=== PATIENT | male | born 1980 | race Caucasian/White ===

== ENCOUNTER 2016-12-26 15:53 | Day surgery (SDC) | payer OTHER ==
[~2016-12-26] VITALS: Ht 190.5 cm; Wt 126.6 kg
[~2016-12-26 15:53] MED LIST: AMLO5TAB2 PO; CETI10CA19 PO; LORA0.5T86 PO
--- OUTSIDE RECORDS SUMMARY | 2016-12-26 16:01 | XMS REPORT | Continuity of Care Document ---
Author Author [facility] Organization [facility] Address Unknown Phone Unavailable Allergies Active Description Code Type Severity Reaction Onset Reported/Identified Relationship to Patient Clinical Status Yes No Known Drug Allergy [id number] Drug Allergy N/A N/A Confirmed but inactive Yes peach 7909 Drug Allergy N/A N/A Confirmed or Verified Yes No Known Medication Allergies NKMA N/A N/A 04/11/2015 Yes peach 7909 Drug Allergy Moderate Swelling 11/28/2016 Medications Problems Date Dx Coded Attending Type Code Diagnosis Diagnosed By 05/15/2013 LANDON MENDEZ 793.19 NONSP FINDING-LF NEC Procedures Code [place] [address] COMPLETE CBC, AUTOMATED LANDON MENDEZ 05/15/2013 Results Test Result Range CBC - 05/15/13 10:25 Granulocyte # 3.2 x10^3 3.0-7.0 Granulocyte % 49.0 % 50-70 HCT 45.4 % 42.0-52.0 HGB 15.2 G/DL 14.0-18.0 Lymph # 3.0 x10^3 1.0-4.0 Lymph % 46.0 % 20-50 MCH 28.9 PG 27.0-31.0 MCHC 33.5 G/DL 32.0-36.0 MCV 86 FL 80-94 [place] # 0.3 x10^3 0.0-0.8 [place] % 5.0 % 1.0-9.0 MPV 6.0 FL 6.0-10.0 Platelet 286 x10^3 150-400 RBC 5.26 x10^3 4.60-6.20 RDW 12.7 % 10.0-13.0 WBC 6.5 x10^3 5.8-10.8 Encounters ACCT No. Visit Date/Time Discharge Status Pt. Type Provider Facility Loc./Unit Complaint [id number] 05/15/2013 13:00:00 05/15/2013 13:00:00 DIS Outpatient [facility]ANDON [facility] [id number] 11/28/2016 12:05:00 Document Registration
--- OUTSIDE RECORDS SUMMARY | 2016-12-26 16:01 | XMS REPORT | Continuity of Care Document ---
Author Author [facility] Organization [facility] Address Unknown Phone Unavailable Support Name Relationship Address Phone CHARIS BOOKER MD Caregiver [address] [place] [address] Unavailable ERASMO VALERA MD Caregiver [address] [facility] [address] [place] [address] Unavailable CARLOS MICHLis Next Of Kin [address] [place], [place] [id number] CP Insurance Providers Guarantor Dilshad Tamayo Address [address] [place] [address] CP Email [email or web address] Payer [facility] Select Policy Number [id number] Subscriber's Name Dilshad Tamayo Relationship 18 Self Advance Directives Directive Response Recorded Date/Time Ordered Resuscitation Status Full Code 12/21/16 3:15pm Resuscitation Documents on File No 12/24/16 6:14am DPOA for Healthcare Only No 12/24/16 6:14am Living Will No 12/24/16 6:14am Problems Active Problems Medical Problem Onset Date Status Precordial chest pain Unknown Acute Medications Current Home Medications Medication Dose Units Route Directions Days Qty Instructions Start Date Amlodipine Besylate 5 Mg Tablet 5 Mg Oral Daily 30 Tablet 12/01/16 Cetirizine Hcl (Zyrtec) 10 Mg Capsule 1 Cap Oral Daily 12/21/16 Lorazepam (Ativan) 0.5 Mg Tablet 0.5 Mg Oral Three Times A Day 10 Days 30 Tablet 12/05/16 Past Home Medications Medication Directions Ordered Status Acetaminophen (Tylenol Extra Strength) 500 Mg Tablet, 1-2 Tab Oral Every 6 Hours as needed for Pain 07/14/15 Discontinued Escitalopram Oxalate 20 Mg Tablet, 1 Tab Oral Bedtime 07/14/15 Discontinued Ibuprofen 200 Mg Tablet, 2 Tab Oral Every 4 Hours as needed for Pain Discontinued Nitroglycerin (Nitrostat) 0.4 Mg Tablet, 0.4 Mg Sublingual As Needed Discontinued Omeprazole 20 Mg Tablet.dr, 20 Mg Oral Before Breakfast 12/24/16 Discontinued Omeprazole Magnesium (Prilosec Otc) 20 Mg Tablet., 1 Tab Oral Bedtime for Acid Reflux 12/01/16 Discontinued Oxycodone Hcl/Acetaminophen (Percocet 5-325 Mg Tablet) 1 Each Tablet, 5 Mg Oral Every 3 Hours as needed for Pain 12/02/15 Discontinued Prazosin Hcl 2 Mg Capsule, 1 Cap Oral Bedtime 07/14/15 Discontinued Social History Social History Problem Response Recorded Date/Time Onset Date Status Reason for Hospitalization chest pain 12/24/2016 8:44am Not Applicable Not Applicable Hx Substance Use No 12/24/2016 6:15am Not Applicable Not Applicable Hx Alcohol Use Y SOCIAL PER H&P 12/24/2016 6:15am Not Applicable Not Applicable Has the pt used tobacco in the last 12 months Yes 12/24/2016 6:15am Not Applicable Not Applicable Query Response Start Date Stop Date Smoking Status Former smoker Hospital Discharge Instructions Instructions: Care Instructions: I was in the hospital because (patient own words): EGD Discharge Diet: You may resume your usual diet. Discharge Activity: You may resume your usual activity. Follow Up Appointments: No specific follow-up appointment with Dr. Valera is necessary. You can call his office for any questions or concerns. Pending Lab / Results: Will be notified Patient Instructions: Do not drive, operate machinery, drink alcohol, or sign important papers for 24 hours. Expected Signs/Symptoms: You may have some gas discomfort. Notify Physician If: Contact Dr. Valera if you have a fever over 101 degrees, severe abdominal pain, or severe rectal bleeding. During Business Hours:: During office hours, call Dr. Valera's office at [phone]. After Business Hours:: After hours, please call [facility] at [phone] and have the facsimile operator page Dr. Valera the covering physician. Pain Management/Treatment: You should not have significant pain following the procedure. Wound/Incision Care: No wound care required. Condition at time of discharge: Good Plan of Care Discharge Date 12/24/16 10:40am Instructions/Education Provided [facility] Surgical Services Prescriptions See Medication Section Functional Status Query Response Date Recorded Ability to complete ADL's impeded by No change December 24, 2016 6:14am Allergies, Adverse Reactions, Alerts Allergen Type Severity Reaction Status Last Updated [place] Allergy Unknown Active 12/24/16 Immunizations Query Response on File Recorded Date/Time Hx Influenza Vaccination Y AUG 2016 12/24/16 6:15am Hx Pneumococcal Vaccination No 12/24/16 6:15am Hx Influenza Vaccination Y AUG 2016 12/24/16 6:15am Influenza Vaccine Hx AUG 2016 12/04/16 12:30pm Vital Signs Acute Vital Signs Vital Response Date/Time Temperature (Fahrenheit) 98.2 deg F (96.8 - 99.1) 12/24/2016 8:22am Temperature (Calculated Celsius) 36.60140 degrees C (36.0 - 37.3) 12/24/2016 8:22am Temperature Source Temporal 12/24/2016 8:22am Pulse Rate (adult) 61 bpm (60 - 100) 12/24/2016 10:00am Respiratory Rate 17 breaths/min (10 - 20) 12/24/2016 10:00am O2 Sat by Pulse Oximetry 96 % (90 - 100) 12/24/2016 10:00am Oxygen Delivery Method Room Air 12/05/2016 5:00pm Oxygen Delivery Method Room Air 12/24/2016 10:00am Oxygen Flow Rate 2.00 L/min 12/24/2016 8:35am Blood Pressure 130/70 mm Hg 12/24/2016 10:00am Blood Pressure Source Automatic Cuff 12/24/2016 10:00am Height (Feet) 6 feet 12/24/2016 6:09am Height (Inches) 3.00 inches 12/24/2016 6:09am Weight (Kilograms) 128.600 kg 12/24/2016 6:09am Body Mass Index (BMI) 35.4 12/24/2016 6:09am Results Laboratory Results Test Name Result Units Flags Reference Collection Date/Time Result Date/ Time Comments Neutrophils % (Manual) 54.0 % 33-66 11/30/2016 1:25pm 11/30/2016 2: 18pm Lymphocytes % (Manual) 37.0 % 23-45 11/30/2016 1:25pm 11/30/2016 2: 18pm Monocytes % (Manual) 6.0 % 0-9.0 11/30/2016 1:25pm 11/30/2016 2:18pm Eosinophils % (Manual) 1.0 % 0-4 11/30/2016 1:25pm 11/30/2016 2:18pm Basophils % (Manual) 2.0 % 0-2 11/30/2016 1:pm 11/30/2016 2:18pm Absolute Neutrophils (Manual) 3.9 T/MM3 1.8-7.7 11/30/2016 1:pm 11/30 2:18pm Lymphocytes # (Manual) 2.7 T/MM3 1-4.8 11/30/2016 1:pm 11/30/2016 2: 18pm Monocytes # (Manual) 0.4 T/MM3 0-0.8 11/30/2016 1:pm 11/30/2016 2: 18pm Eosinophils # (Manual) 0.1 T/MM3 0-0.5 11/30/2016 1:pm 11/30/2016 2: 18pm Basophils # (Manual) 0.1 T/MM3 0-0.2 11/30/2016 1:pm 11/30/2016 2: 18pm Red Cell Morphology Comment NORMAL 11/30/2016 1:11/30/2016 2: 18pm Total Bilirubin 0.40 MG/DL 0.20-1.30 11/30/2016 1:11/30/2016 1: 44pm Alkaline Phosphatase 58 U/L 38-126 11/30/2016 1:11/30/2016 1:44pm Total Protein 6.7 G/DL 6.3-8.2 11/30/2016 1:11/30/2016 1:44pm Albumin 4.0 G/DL 3.5-5.0 11/30/2016 1:11/30/2016 1:44pm Globulin 2.7 G/DL 2.4-3.6 11/30/2016 1:11/30/2016 1:44pm Albumin/Globulin Ratio 1.5 RATIO 1.1-2.2 11/30/2016 1:11/30/2016 1 :44pm Aspartate Amino Transf (AST/SGOT) 21 U/L 17-59 11/30/2016 1:25pm 2016 1:44pm Alanine Aminotransferase (ALT/SGPT) 47 U/L 21-72 11/30/2016 1:25 1:44pm Magnesium Level 2.0 MG/DL 1.6-2.3 11/30/2016 1:25pm 11/30/2016 1:44pm Thyroid Stimulating Hormone (TSH) 2.60 MIU/L 0.47-4.68 11/30/2016 1: 25pm 11/30/2016 3:38pm Urine Collection Type CLEANC[place]-MIDSTREAM 11/30/2016 8:43pm 2016 9:08pm Urine Color YELLOW YELLOW 11/30/2016 8:43pm 11/30/2016 9:08pm Urine Turbidity CLEAR CLEAR 11/30/2016 8:43pm 11/30/2016 9:08pm Urine Specific [place] 1.020 1.015-1.025 11/30/2016 8:43pm 2016 9:08pm Urine pH 6.0 5.0-8.0 11/30/2016 8:43pm 11/30/2016 9:08pm Urine Leukocyte Esterase NEGATIVE NEGATIVE 11/30/2016 8:43pm 2016 9:08pm Urine Nitrite NEGATIVE NEGATIVE 11/30/2016 8:43pm 11/30/2016 9:08pm Urine Protein NEGATIVE NEGATIVE 11/30/2016 8:43pm 11/30/2016 9:08pm Urine Glucose (UA) NEGATIVE NEGATIVE 11/30/2016 8:43pm 11/30/2016 9: 08pm Urine Ketones NEGATIVE NEGATIVE 11/30/2016 8:43pm 11/30/2016 9:08pm Urine Urobilinogen 0.2 EU/DL NORMAL 11/30/2016 8:43pm 11/30/2016 9: 08pm Urine Bilirubin NEGATIVE NEGATIVE 11/30/2016 8:43pm 11/30/2016 9: 08pm Urine Blood NEGATIVE NEGATIVE 11/30/2016 8:43pm 11/30/2016 9:08pm Urinalysis Comment MICROSCOPIC NOT IND. 11/30/2016 8:43pm 2016 9:08pm Creatine Kinase MB 0.6 ng/mL 0.0-7.2 11/30/2016 1:25pm 11/30/2016 10: 08pm CKMB Mass performed at [facility], [address], [place] [address] Vegetable Harvest Worker Yanna Robert DO White Blood Count 7.1 T/MM3 4.5-11.0 12/05/2016 12:07pm 12/05/2016 12: 16pm Red Blood Count 5.36 M/MM3 4.50-5.90 12/05/2016 12:07pm 12/05/2016 12: 16pm Hemoglobin 15.3 GM/DL 13.5-17.5 12/05/2016 12:07pm 12/05/2016 12:16pm Hematocrit 42.7 % 41-53 12/05/2016 12:07pm 12/05/2016 12:16pm Mean Corpuscular Volume 79.7 UM3 L 80-100 12/05/2016 12:07pm 12/05/2016 12:16pm Mean Corpuscular Hemoglobin 28.5 UUG 26-34 12/05/2016 12:07pm 2016 12:16pm Mean Corpuscular Hemoglobin Concent 35.8 GM/DL 31-37 12/05/2016 12:07pm 12/05/2016 12:16pm RDW Standard Deviation 35.8 FL L 36.9-50.2 12/05/2016 12:07pm 2016 12:16pm Platelet Count 274 T/MM3 130-400 12/05/2016 12:07pm 12/05/2016 12:16pm Mean Platelet Volume 8.3 UM3 L 9.4-12.4 12/05/2016 12:07pm 12/05/2016 12 :16pm Neutrophils (%) (Auto) 55.1 % 33-66 12/05/2016 12:07pm 12/05/2016 12: 16pm Lymphocytes (%) (Auto) 36.2 % 23-45 12/05/2016 12:07pm 12/05/2016 12: 16pm Monocytes (%) (Auto) 6.2 % 0-9.0 12/05/2016 12:07pm 12/05/2016 12:16pm Eosinophils (%) (Auto) 1.8 % 0-4 12/05/2016 12:07pm 12/05/2016 12:16pm Basophils (%) (Auto) 0.6 % 0-2 12/05/2016 12:07pm 12/05/2016 12:16pm Immature Granulocyte % (Auto) 0.1 % 0.0-0.5 12/05/2016 12:07pm 2016 12:16pm Absolute Neutrophils (auto) 3.9 T/MM3 1.8-7.7 12/05/2016 12:07pm 2016 12:16pm Absolute Lymphocytes (auto) 2.6 T/MM3 1-4.8 12/05/2016 12:07pm 2016 12:16pm Absolute Monocytes (auto) 0.4 T/MM3 0-0.8 12/05/2016 12:07pm 2016 12:16pm Absolute Eosinophils (auto) 0.1 T/MM3 0-0.5 12/05/2016 12:07pm 2016 12:16pm Absolute Basophils (auto) 0.0 T/MM3 0-0.2 12/05/2016 12:07pm 2016 12:16pm Absolute Immature Granulocyte (auto 0.01 T/MM3 0.00-0.03 12/05/2016 12: 07pm 12/05/2016 12:16pm D-Dimer < 150 NG/ML 0-230 12/04/2016 11:27am 12/04/2016 12:00pm <230 NG/ML D-DU=PRESUMPTIVE NEGATIVE FOR PE OR DVT >230 NG/ML D-DU=ADDITIONAL EVAL FOR PE OR DVT RECOMMENDED Icterus Index < 2 0-7 12/05/2016 12:07pm 12/05/2016 12:25pm Chemistry Specimen Hemolysis < 15 0-25 12/05/2016 12:07pm 12/05/2016 12:25pm 0-25: Specimen Exhibited No Hemolysis. Turbidity < 20 0-20 12/05/2016 12:07pm 12/05/2016 12:25pm Sodium Level 141 MEQ/L 134-144 12/05/2016 12:07pm 12/05/2016 12:25pm Potassium Level 4.5 MEQ/L 3.6-5 12/05/2016 12:07pm 12/05/2016 12:25pm Chloride Level 107 MEQ/L 98-107 12/05/2016 12:07pm 12/05/2016 12:25pm Carbon Dioxide Level 26 MEQ/L 22-30 12/05/2016 12:07pm 12/05/2016 12: 25pm Anion Gap 8 MEQ/L 5-15 12/05/2016 12:0712/05/2016 12:25pm Blood Urea Nitrogen 15.0 MG/DL 9-20 12/05/2016 12:07pm 12/05/2016 12: 25pm Creatinine 0.9 MG/DL 0.8-1.5 12/05/2016 12:07pm 12/05/2016 12:25pm BUN/Creatinine Ratio 17 RATIO 6-26 12/05/2016 12:07pm 12/05/2016 12: 25pm Glomerular Filtration Rate Calc 94 12/05/2016 12:07pm 12/05/2016 12 :25pm Glucose Level 85 MG/DL 75-110 12/05/2016 12:07pm 12/05/2016 12:25pm Calculated Osmolality 271 MOSM/KG 261-280 12/05/2016 12:07pm 2016 12:25pm Calcium Level 9.8 MG/DL 8.4-10.2 12/05/2016 12:07pm 12/05/2016 12:25pm Troponin I < 0.012 ng/ml 0-0.12 12/05/2016 4:09am 12/05/2016 5:36am Troponin values with a difference of 55% increase from orginal troponin value represent a true biological DELTA value. (%increase Calc=Orginal Troponin value, divided by subsequent Troponin value, multiplied by 100) Procedures Procedure Status Date Provider(s) Routine venipuncture Completed 11/30/16 Routine venipuncture Completed 11/30/16 Routine venipuncture Completed 11/30/16 Chest x-ray 1 view frontal Completed 11/30/16 Comprehen metabolic panel Completed 11/30/16 Urinalysis auto w/o scope Completed 11/30/16 Creatine mb fraction Completed 11/30/16 Assay of magnesium Completed 11/30/16 Assay thyroid stim hormone Completed 11/30/16 Assay of troponin quant Completed 11/30/16 Assay of troponin quant Completed 11/30/16 Assay of troponin quant Completed 11/30/16 Bl smear w/diff wbc count Completed 11/30/16 Complete cbc automated Completed 11/30/16 Fibrin degradation quant Completed 11/30/16 Electrocardiogram tracing Completed 11/30/16 Electrocardiogram tracing Completed 11/30/16 Tte w/doppler complete Completed 11/30/16 Ther/proph/diag inj sc/im Completed 11/30/16 Ther/proph/diag inj sc/im Completed 11/30/16 "HOSPITAL OBSERVATION SERVICE, PER HOUR" Completed 11/30/16"HOSPITAL OBSERVATION SERVICE, PER HOUR" Completed 11/30/16"HOSPITAL OBSERVATION SERVICE, PER HOUR" Completed 11/30/16"HOSPITAL OBSERVATION SERVICE, PER HOUR" Completed 11/30/16"INJECTION, ENOXAPARIN SODIUM, 10 MG" Completed 11/30/16"INJECTION, ENOXAPARIN SODIUM, 10 MG" Completed 11/30/16 Routine venipuncture Completed 12/04/16 Routine venipuncture Completed 12/04/16 Routine venipuncture Completed 12/04/16 Routine venipuncture Completed 12/04/16 Routine venipuncture Completed 12/04/16 Ct angiography chest Completed 12/04/16 Echo exam of abdomen Completed 12/04/16 Metabolic panel total ca Completed 12/04/16 Assay of troponin quant Completed 12/04/16 Assay of troponin quant Completed 12/04/16 Assay of troponin quant Completed 12/04/16 Assay of troponin quant Completed 12/04/16 Complete cbc w/auto diff wbc Completed 12/04/16 Fibrin degradation quant Completed 12/04/16 Electrocardiogram tracing Completed 12/04/16 L hrt artery/ventricle angio Completed 12/04/16 GREG DAWSON MD Hydrate iv infusion add-on Completed 12/04/16 Hydrate iv infusion add-on Completed 12/04/16 Ther/proph/diag inj iv push Completed 12/04/16 Tx/pro/dx inj new drug addon Completed 12/04/16"CLOSURE DEVICE, VASCULAR (IMPLANTABLE/INSERTABLE)" Completed 12/04/16"CATHETER, GUIDING (MAY INCLUDE INFUSION/PERFUSION CAP Completed "INJECTION, PANTOPRAZOLE SODIUM, PER VIAL" Completed 12/04/16"INJECTION, PANTOPRAZOLE SODIUM, PER VIAL" Completed 12/04/16"HOSPITAL OBSERVATION SERVICE, PER HOUR" Completed 12/04/16"HOSPITAL OBSERVATION SERVICE, PER HOUR" Completed 12/04/16"HOSPITAL OBSERVATION SERVICE, PER HOUR" Completed 12/04/16"INJECTION, HEPARIN SODIUM, PER 1000 UNITS" Completed 12/04/16"INJECTION, MIDAZOLAM HYDROCHLORIDE, PER 1 MG" Completed 12/04/16"INJECTION, FENTANYL CITRATE, 0.1 MG" Completed 12/04/16"INFUSION, NORMAL SALINE SOLUTION , 1000 CC" Completed 12/04/16"INFUSION, NORMAL SALINE SOLUTION , 250 CC" Completed 12/04/16"LOW OSMOLAR CONTRAST MATERIAL, 300-399 MG/ML IODINE C Completed "LOW OSMOLAR CONTRAST MATERIAL, 300-399 MG/ML IODINE C Completed "LOW OSMOLAR CONTRAST MATERIAL, 300-399 MG/ML IODINE C Completed Hepatobil syst image w/drug Completed 12/07/16"TECHNETIUM TC-99M MEBROFENIN, DIAGNOSTIC, PER STUDY D Completed "INJECTION, SINCALIDE, 5 MICROGRAMS" Completed 12/07/16 Esophagogastroduodenoscopy (EGD) with closed biopsy Completed 12/24/16 ERASMO VALERA MD Encounters Encounter Location Arrival/Admit Date Discharge/Depart Date Attending Provider Departed [facility] Day [facility] 12/24/16 5:51am 12/24/16 10 :40am ERASMO VALERA MD Registered Clinic [facility] 12/07/16 8:04am CHARIS BOOKER MD Departed Surgical Day Care [facility] 12/04/16 10:27am 12/05/16 6 :40pm CHARIS BOOKER MD Discharged Inpatient (obs) [facility] 11/30/16 12:20pm 12/01/16 10:55am CHARIS BOOKER MD
--- NOTE | 2016-12-26 16:03 | NUR ---
ADMIT AMBULATORY TO ROOM 109. ALERT AND ORIENTED X3. FAMILY AT BEDSIDE. BED IN LOWEST POSITION, CALL LIGHT WITHIN REACH, SIDE RAILS UP X2, BED ALARM ACTIVATED. REPORTS PAIN 2/10 AT THIS TIME. WILL CONTINUE TO MONITOR.
[2016-12-26 16:14] VITALS: Ht 190.5 cm; Wt 126.6 kg
[2016-12-26] MEDS ORDERED: D5-1/2 NS KCL 20 MEQ 1,000 ML IV SCH (16:15)
[2016-12-26] MEDS ORDERED: METOCLOPRAMIDE 10mg/2ml INJECTION IV PRN (16:15)
[2016-12-26] MEDS ORDERED: LANS30CA58 PO (16:33)
[2016-12-26] MEDS ORDERED: ONDA4TAB4 PO (16:33)
[2016-12-26 16:40] VITALS: BP 134/78; PULSE 67; RESP 18; TEMP 97.4; O2SAT 94
[2016-12-26 17:30] LABS: BASOPHILS % (AUTO) 0.5 % (0-2); EOSINOPHILS # (AUTO) 0.1 T/MM3 (0-0.5); EOSINOPHILS % (AUTO) 1.5 % (0-4); HCT - HEMATOCRIT 39.4 % (41-53); HGB - HEMOGLOBIN 14.2 GM/DL (13.5-17.5); IMMATURE GRANULOCYTE # (AUTO) 0.01 T/MM3 (0.00-0.03); IMMATURE GRANULOCYTE % (AUTO) 0.1 % (0.0-0.5); LYMPHOCYTES # (AUTO) 2.5 T/MM3 (1-4.8); LYMPHOCYTES % (AUTO) 34.5 % (23-45); MEAN CORPUSCULAR HGB 28.6 UUG (26-34); MEAN CORPUSCULAR VOLUME 79.4 UM3 (80-100); MEAN PLATELET VOLUME 8.3 UM3 (9.4-12.4); MONOCYTES # (AUTO) 0.4 T/MM3 (0-0.8); NEUTROPHILS #(AUTO)-ABSOLUTE 4.3 T/MM3 (1.8-7.7); NEUTROPHILS % (AUTO) 58.4 % (33-66); RED BLOOD COUNT 4.96 M/MM3 (4.50-5.90); WBC - WHITE BLOOD COUNT 7.4 T/MM3 (4.5-11.0)
[2016-12-26 18:05] LABS: ALBUMIN 4.1 G/DL (3.5-5.0); ALBUMIN/GLOBULIN RATIO 1.4 RATIO (1.1-2.2); ALKALINE PHOSPHATASE 59 U/L (38-126); ALT (SGPT) 49 U/L (21-72); ANION GAP 9 MEQ/L (5-15); AST (SGOT) 24 U/L (17-59); BUN/CREATININE RATIO 14 RATIO (6-26); CALCIUM 9.2 MG/DL (8.4-10.2); CHLORIDE 104 MEQ/L (98-107); CO2 - CARBON DIOXIDE 28 MEQ/L (22-30); GLOMERULAR FILTRATION RATE 84; GLUCOSE 105 MG/DL (75-110); POTASSIUM 3.7 MEQ/L (3.6-5); SODIUM 141 MEQ/L (134-144); TOTAL PROTEIN 7.1 G/DL (6.3-8.2)
[2016-12-26 18:40] LABS: BLOOD, URINE NEGATIVE (NEGATIVE); COLOR,URINE YELLOW (YELLOW); LEUKOCYTE ESTERASE ,URINE NEGATIVE (NEGATIVE); NITRITE,URINE NEGATIVE (NEGATIVE); UROBILINOGEN,URINE 0.2 EU/DL (NORMAL)
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
--- NOTE | 2016-12-26 18:55 | HPF ---
HISTORY OF PRESENT ILLNESS Patient is a 36-year-old male here today with his . He presents today with a (1) six-day history of nausea, vomiting and dry heaving. He can't even try any solid food or drink for six days. He feels lightheaded, like he is going to fall. (2) Complaining of right upper quadrant pain that seems to go to his back. He is having the chest pain in his anterior chest and epigastric region that radiates to his neck and arms like it did when he first presented with chest pain on 11/30/2016, two days shy of a month evaluation. His right upper quadrant pain is new as far as he is concerned. This patient has had extensive workup for cardiac chest pain including serial EKGs and serial cardiac enzymes which were normal. He had an echocardiogram which was normal. He had heart catheterization that was normal. I did a CTA chest aorta was an essentially negative exam. No * * or aneurysm processes. D-dimer was normal. This was followed by ultrasound gallbladder which was essentially normal followed by a HIDA scan with normal EF. This was followed by CT abdomen and pelvis done 12/24/2016, just a few days ago. This basically just showed mild fatty liver, large right renal cyst, an umbilical hernia, a few colonic diverticula as well as mild hepatosplenomegaly. None of this would explain his symptoms then and now. He had an EGD done a few days ago by Dr. Valera. The EGD report basically shows mild antral gastritis as well as mild duodenitis. Biopsy came back as negative. PAST MEDICAL HISTORY Sleep apnea. Left knee injury. PTSD. Exogenous obesity. Depression. Multiple orthopedic procedures. SOCIAL HISTORY Patient is with three children. He smoked 30-pack year. Quit over nine years ago. FAMILY HISTORY Mother had breast cancer with uterine and abdominal involvement. Family history of diabetes mellitus, hypertension, heart trouble, stroke, lung disease, alcoholism, glaucoma, mental illness. ALLERGIES Peaches. CURRENT MEDICATIONS 1. Prevacid 30 mg one tablet daily. 2. Zofran 4 mg one tablet t.i.d. 3. Zyrtec 10 mg one tablet daily. PHYSICAL EXAM GENERAL: Patient looks miserable, basically dry-heaving throughout this examination. He looks uncomfortable. VITAL SIGNS: We checked for orthostatic hypotension which was negative. Blood pressure lying down was 112/75 with pulse 72. Standing up blood pressure was 114/80 with a pulse of 84. HEENT: Unremarkable. NECK: Supple. LUNGS: Clear. CARDIOVASCULAR: Regular rhythm. ABDOMEN: Soft. Patient is tender at the right upper quadrant as well as epigastric region. Bowel sounds are normoactive. No guarding or rebound. EXTREMITIES: No cyanosis, clubbing or edema. NEUROLOGIC: Grossly intact. SKIN: No rash. ASSESSMENT 1. Intractable nausea and vomiting. 2. Right upper quadrant pain which is new. 3. Epigastric/chest pain which is not new and has been worked up extensively with negative findings as noted in HPI above. 4. Recurrent chest pain is noncardiac. PLAN Admit patient to [facility] for further evaluation, IV fluids and antiemetics. Consultation to Dr. Forrest to see if he wants to take patient's gallbladder out. Will go ahead and check another gallbladder ultrasound today. SOLA
--- NOTE | 2016-12-26 19:26 | NUR ---
VICK BOOKER AND JOSE G JARA APRN NOTIFIED OF ULTRASOUND RESULTS. NO NEW ORDERS AT THIS TIME.
--- NOTE | 2016-12-26 19:28 | NUR ---
SHIFT SUMMARY ALERT AND ORIENTED X3. PATIENT CURRENTLY NPO. DENIES CHEST PAIN OR SHORTNESS OF AIR THROUGHOUT SHIFT. REPORTS PAIN 2/10. UP TO BATHROOM WITH STANDBY ASSIST FROM NURSING STAFF. BED IN LOWEST POSITION, CALL LIGHT WITHIN REACH, SIDE RAILS UP X2. FAMILY AT BEDSIDE.
[2016-12-26 19:55] LABS: LIPASE 39 U/L (23-300)
[2016-12-26] MEDS ORDERED: HYDROMORPHONE 2mg/ml INJECTION IV PRN (20:00)
[2016-12-26] MEDS: D5-1/2 NS KCL 20 MEQ 1,000 ML IV SCH (20:54)
[2016-12-26 21:18] VITALS: BP 128/67; PULSE 58; RESP 12; TEMP 97.3; O2SAT 94
[2016-12-26] MEDS: PANTOPRAZOLE 40mg INJECTION IV SCH (21:22)
[2016-12-27] VITALS (28 sets, daily range): BP systolic 107–140; BP diastolic 55–71; PULSE 53–82; RESP 14–18; TEMP 96.5–98.6; O2SAT 88–98
[2016-12-27] MEDS: D5-1/2 NS KCL 20 MEQ 1,000 ML IV SCH ×4 (02:55→16:04)
[2016-12-27] MEDS: ONDANSETRON 4mg/2ml INJECTION IV PRN ×2 (04:20→09:32)
--- NOTE | 2016-12-27 05:32 | NUR ---
SHIFT SUMMARY PATIENT IS ALERT AND ORIENTED X3. VITAL SIGNS STABLE ON ROOM AIR. HE HAS REPORTED PAIN AT 4-5/10 MOST OF SHIFT, BUT STATES THIS IS TOLERABLE TO HIM AND REFUSES PAIN MEDS. HAS HAD SOME NAUSEA THIS SHIFT, BUT DENIES VOMITING. PATIENT IS STAND BY ASSIST TO AMBULATE. HAS SLEPT SOME, BUT STATES HE CAN'T GET COMFORTABLE TO REST MORE THAN A LITTLE WHILE. WILL CONTINUE TO MONITOR.
--- NOTE | 2016-12-27 09:11 | DI ---
Indication: ITS.REASON: INTRACTABLE N/V RUQ PAIN US GALLBLADDER: Comparison: 12/04/2016 Technique: Real-time and color flow imaging provided Findings: Liver: Shows mildly increased echogenicity suggesting diffuse fatty infiltration. No focal masses are noted. Liver measured 14.5 cm. Pancreas showed no acute findings. Aorta and vena cava were unremarkable. Gallbladder shows no stones, wall thickening or tenderness to transducer palpation. Right kidney measures 11.6 x 5.5 x 5.4 cm showing a 4.7 x 6.2 x 4.7 cm cyst. No obstructive uropathy identified. Impression: 1. Moderate sized cyst in the right kidney without additional acute findings 2. Probable diffuse fatty infiltration the liver without marked biliary ductal dilatation or masses. .
[2016-12-27] MEDS: AMLODIPINE 5 MG TABLET PO SCH (09:27)
[2016-12-27] MEDS: PANTOPRAZOLE 40mg INJECTION IV SCH ×2 (09:28→20:34)
--- NOTE | 2016-12-27 12:00 | NUR ---
CM SPOKE WITH PT, INTRODUCED SELF, EXPLAINED ROLE, PROVIDED CONTACT INFO. PT SAID HE LIVES WITH IN [place] AND HIS DC PLAN IS TO RETURN HOME. 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 ENCOURAGED HIM TO CALL IF NEEDS DO ARISE, AND HE SAID OK. Addendum: 12/27/16 at 1202 by AHSLEY ARANA Amended: Links added.
--- NOTE | 2016-12-27 12:00 | NUR ---
CM СЕРГЕЙE SCORE IS 2. Addendum: 12/27/16 at 1200 by ASHLEY HAMEED SW Amended: Links added.
[2016-12-27] MEDS ORDERED: PROPOFOL 200mg 20 ML IV ONE ×2 (14:05→15:02)
[2016-12-27] MEDS ORDERED: ROCURONIUM 50mg/5ml INJECTION IV ONE (14:05)
[2016-12-27] MEDS ORDERED: FENTANYL 250mcg/5ml INJECTION ONE (14:08)
--- NOTE | 2016-12-27 14:08 | NUR ---
OFF UNIT OFF UNIT VIA WHEELCHAIR WITH SURGERY CARE STAFF. O2 RA. IVL IN PLACE. BRO TEJEDA RN AWARE.
[2016-12-27] MEDS ORDERED: BUPIVACAINE 0.25%/EPI 1:200,000 30ml SDV ONE (14:09)
[2016-12-27] MEDS ORDERED: LR 1,000 ML IV PRN (14:09)
[2016-12-27] MEDS ORDERED: IOHEXOL 300 MG/ML 50ml INJECTION ONE (14:12)
--- NOTE | 2016-12-27 14:23 | ANESPREOP ---
Anesthesia Record Date and Time DATE: 12/27/16 TIME: 14:18 Pre-Op Diagnosis right upper quad pain nausea vomiting Proposed Surgical Procedure laparoscopic cholecystectomy NPO since: 2199 Allergies: Coded Allergies: peach (Verified Allergy, Unknown, 12/26/16) Ht/Wt/BMI Height: 6 ' 3.00 " Weight: 126.600 kg BMI: 35.6 kg/m2 Vital Signs Date Time Temp Pulse Resp B/P Pulse Ox O2 Delivery O2 Flow Rate FiO2 12/27/16 14:13 98.6 66 18 137/59 91 Room Air Medications Inpatient Medications Current Medications Medications (Trade) Dose Ordered Sig/Cole Start Time Stop Time Status Last Admin Dose Admin Pantoprazole Sodium (Protonix Iv) 40 mg BID 12/26/16 21:00 12/27/16 09:28 40 MG Metoclopramide HCl (REGLAN Inj) 10 mg Q4-6H PRN 12/26/16 16:15 Ondansetron HCl 4 mg 4 mg Q4-6H PRN 12/26/16 16:15 12/27/16 09:32 4 MG Potassium Chloride/Dextrose/ Sod Cl 1,000 ml @ 250 mls/hr Q4H 12/26/16 16:15 12/26/16 20:14 DC 12/26/16 16:35 250 MLS/HR Potassium Chloride/Dextrose/ Sod Cl (D5-1/2 NS KCl 20 Meq) 1,000 ml @ 150 mls/hr Q6H40M 12/26/16 20:15 12/27/16 11:21 150 MLS/HR Hydromorphone HCl (Dilaudid) Q2H PRN 12/26/16 20:00 Amlodipine Besylate 5 mg 5 mg DAILY 12/27/16 09:00 12/27/16 09:27 5 MG Lactated Ringer's (Lactated Ringers) 1,000 ml @ 0 mls/hr Q0M PRN 12/27/16 14:09 Amlodipine Besylate (Amlodipine Besylate) 5 Mg Tablet, 5 MG PO DAILY Last Taken: on 12/24/162099 Cetirizine HCl (Zyrtec) 10 Mg Capsule, 1 CAP PO DAILY, (Reported) Last Taken: on Unknown Date & Time Lansoprazole (Lansoprazole) 30 Mg Capsule.dr, 1 CAP PO HS, (Reported) Last Taken: on 12/25/16 0800 Lorazepam (Ativan) 0.5 Mg Tablet, 0.5 MG PO TID Last Taken: on 12/25/16 0800 Ondansetron HCl (Zofran) 4 Mg Tablet, 4 MG PO TID, (Reported) Last Taken: on 12/25/16 0800 Discontinued Medications Omeprazole (Omeprazole) 20 Mg Tablet.dr, 20 MG PO ACB, (Reported) Take 1 tablet, by mouth, one time a day with breakfast. Currently on Beta Pham: No Medical/Surgical History Anesthesia PMH: Reports: *Hypertension, Anxiety, Arthritis, Asthma, Sleep Apnea (has a cpap, but pt states it does not work ), Denies: *[place], Blood Transfusion Reac, CHF, CVA/Stroke/TIA, Cancer, Deep Vein Thrombosis, Glaucoma, Seizures Smoking Status: Former smoker (quit 2006) Has pt. smoked today?: No Use Chewing Tobacco?: No Second Hand Exposure: No Quit Date: Oct 14, 2006 Substance Use Type: does not use Alcohol Intake: none, other Past Surgical History Orthopedic Surgeries: Yes - MULTIPLE ORTHOPEDIC PROCEDURES Abdominal Surgeries: Genitourinary Surgeries: Cardiac Surgeries: Yes - HEART CATH- NOV 2016 Endocrine Surgeries: Reproductive Surgeries: Yes - VASECTOMY Neurological Surgeries: Ear Surgeries: Nose Surgeries: Throat Surgeries: Yes - TONSILECTOMY Other Surgeries: Yes - MULTIPLE ORTHOPEDIC PROCEDURES ; COLONOSCOPY 07/2015 Anesthesia Adverse Reactions: FOUND none Pertinent Findings Laboratory Tests 12/26/16 17:03 EKG Rhythm: Sinus Rhythm Physical Exam Respiratory: Lungs clear Cardiovascular: FOUND Regular rate, rhythm, FOUND No murmur Airway Assessment Mallampati Score: II TMD: 3 Fingerbreadths Neck Extension: Good Teeth: Upper Dentures Overall Assessment: May Be Diff Mask Vent. ASA: 2 Plan Anesthesia Plan: GETA Discussion Discussed risks/options/alternatives of anesthesia and questions answered. Patient consents. Nursing pain assessment noted. Attestation Statement Prior to the delivery of any anesthetic medication, I examined the patient, developed the plan, obtained the patient's consent and discussed the risk and benefits of the procedure with the patient/guardian. ALCIDES MARK CRNA Dec 27, 2016 14:22
[2016-12-27] MEDS ORDERED: SALINE FLUSH 10ml SYRINGE ONE (14:26)
[2016-12-27] MEDS ORDERED: GLYCOPYRROLATE 0.4mg/2ml INJECTION ONE (14:42)
[2016-12-27] MEDS ORDERED: SUGAMMADEX 200 MG/2 ML INJECTION IV ONE (15:14)
[2016-12-27] MEDS ORDERED: ONDANSETRON 4mg/2ml INJECTION ONE (15:14)
[2016-12-27] MEDS ORDERED: KETOROLAC 30mg/ml INJECTION IV PRN (15:30)
[2016-12-27] MEDS ORDERED: IBUPROFEN 600 MG TABLET PO PRN (15:30)
--- NOTE | 2016-12-27 15:37 | GSPOSTPN ---
Procedure Procedure Date: Dec 27, 2016 Surgeon: Adriane Assisting Surgeon: Sandip Kelley Anesthesia: Local, GETA ASA: 2 Procedure Laparoscopic cholecystectomy with Firefly imaging GS Diagnosis Postop Diagnosis RUQ abd pain, Complications Complications Estimated Blood Loss See Anesthesia Record. Vital Signs See Anesthesia and PACU record. GABRIEL KELLEY APRN, DEES Dec 27, 2016 15:36
[2016-12-27] MEDS ORDERED: ONDANSETRON 4mg/2ml INJECTION IV PRN (15:45)
[2016-12-27] MEDS: HYDROMORPHONE 2mg/ml INJECTION IV PRN ×2 (15:46→16:01)
--- NOTE | 2016-12-27 16:16 | NUR ---
Back from OR Pt transferred self from cart to bed. VS stable on RA. Dermabond intact to lap sites, no drainage. Side rails up X2, call light w/in reach, bed alarm on. Will continue to monitor.
[2016-12-27] MEDS: HYDROCODONE/APAP 5 mg/325 mg TABLET PO PRN ×2 (16:52→22:46)
--- NOTE | 2016-12-27 16:55 | CONSF ---
DATE OF CONSULTATION 12/27/2016 FINDINGS Mr. Tamayo is a 36-year-old gentleman whom I was asked to see as a new patient/consultation as a result of his history for ongoing abdominal discomfort, chest discomfort, and history for nausea and vomiting. The patient states that his "problems began about a month ago." Patient states that prior to a month ago he was healthy and did not have any significant ailments. The patient states that about a month ago he began to develop a component of some chest discomfort. Patient states that he became concerned that he could be having a heart attack and had presented for further evaluation. The patient states he was seen by cardiology and had undergone a thorough evaluation including a heart catheterization. Patient states that his "heart checked out fine." Patient states that recently he has been noticing a moderate amount of pain within his right upper quadrant of his abdomen in conjunction with this intermittent chest discomfort. He states that he did undergo a gallbladder sonogram that was normal. He states he did undergo a hepatobiliary scan for further evaluation from a gallbladder standpoint. Upon questioning the patient he states that he had pain during his hepatobiliary scan that was identical to the pain that he had been previously experiencing. Patient states that earlier this week he did undergo an EGD by his primary care physician and no marked abnormalities were noted to explain his pain. He continues to have ongoing nausea and vomiting and discomfort and therefore presented once again to his primary care physician for further evaluation. The patient was subsequently admitted. This morning the patient states that he continues to have a discomfort within his right upper quadrant of his abdomen. PAST MEDICAL HISTORY, PAST SURGICAL HISTORY, MEDICATIONS, ALLERGIES, SOCIAL HISTORY, FAMILY HISTORY, REVIEW OF SYSTEMS Performed by my nurse practitioner, Sandip Kelley APRN . PHYSICAL EXAMINATION GENERAL: Mr. Tamayo is a 36-year-old gentleman who appears to not feel well this morning. He does not appear to be in acute distress. VITAL SIGNS: Afebrile, normotensive. Current vitals include temperature 96.9, pulse 61, respirations 16, blood pressure 125/67, SAO2 96% on room air. HEENT: Normocephalic. Pupils are equally round and react to light and accommodation. NECK: Supple without lymphadenopathy. CHEST: Clear to auscultation bilaterally. HEART: Regular rate and rhythm. Normal S1 and S2. ABDOMEN: Palpation of the abdomen does indeed reveal tenderness to his right upper quadrant of his abdomen. He does have a slight component of some voluntary guarding. However, there is no evidence for involuntary guarding or rebound tenderness. I do not appreciate any evidence for hepatosplenomegaly nor other abnormal masses. EXTREMITIES: Without clubbing, cyanosis, or edema. NEURO: Cranial nerves II-XII grossly intact. Patient is without focal motor or sensory deficits. LABORATORY/RADIOGRAPHIC EVALUATION The patient had a CBC upon admission that was unremarkable. CMP was obtained and found be essentially within normal limits. Lipase was obtained and found to be normal at 39. The patient did undergo a repeat gallbladder ultrasound that revealed a moderate-sized cyst in the right kidney without acute findings. The patient was found to have no evidence for cholelithiasis. The patient had probable fatty infiltration of the liver. The patient has had numerous radiographic evaluation previously including a CT scan of his abdomen and pelvis from December 24. This was found to be essentially within normal limits. He was found have a small fat-containing umbilical hernia. No acute processes were again noted. The patient had hepatobiliary scan performed on December 07, 2016. Ejection fraction was on the low end of normal of 42%. Chest CTA was obtained and found to be negative. I did review Dr. Sofia's admission history and physical from yesterday. He did perform a good summation of the numerous tests that have been performed to try to elicit the underlying etiology for the patient's ongoing abdominal pain/chest pain. ASSESSMENT 36-year-old gentleman with a one-month history of intermittent chest discomfort, right lower quadrant abdominal pain, nausea and vomiting. Exact etiology unclear. The patient may have sphincter of Oddi dysfunction/biliary etiology for his pain. PLAN The patient was informed that he is somewhat of a "difficult case" given the fact that he has continued ongoing significant symptoms of uncertain etiology despite his primary care physician's best attempt at eliciting the underlying etiology for his ongoing pain, nausea and vomiting. I informed the patient that some of his clinical history does appear to perhaps be biliary in its etiology. I informed the patient that he did have normal hepatobiliary scan with an ejection fraction of 42%. I informed the patient that normal is 35% or more and therefore he was on the "low end of normal." Furthermore, the fact that he had severe pain during his hepatosplenomegaly scan that was identical to the pain that he had been previously experiencing is also indicative of possible gallbladder etiology. I informed the patient that I felt the one could make an argument for proceeding with surgical intervention/laparoscopic cholecystectomy given his ongoing symptomatology and the fact that his symptoms and radiographic evaluation are suggestive of potential biliary etiology. I informed the patient, however, that I could not guarantee that his symptoms would improve following cholecystectomy but that I felt that it was possible or probable as a result of the above circumstances. I did discuss in detail with the patient and his what a laparoscopic cholecystectomy entailed and its associated risks which included but was not inclusive of bleeding, infection, potential conversion to an open procedure, potential injury to adjacent structures, especially the common bile duct. The patient understood and wished to proceed with laparoscopic cholecystectomy later today. SOLA
--- NOTE | 2016-12-27 17:44 | ANESPO ---
Post-Op Note Date 12/27/16 Time: 17:44 Status Pt Participated in Evaluation: Pt participated in person Vital Signs Date Time Temp Pulse Resp B/P Pulse Ox O2 Delivery O2 Flow Rate FiO2 12/27/16 17:23 82 120/63 94 Room Air 12/27/16 16:53 14 12/27/16 16:23 97.5 12/27/16 15:35 6.00 Respiratory Function: Airway patent Cardiovascular Function: Regular pulse Telemetry Pattern: SR Pain Level Intensity: 4 Hydration: Taking po fluids Complications during Recovery None apparent Follow-Up Instructions Instructions Per Surgeon GONZÁLEZ CHO CRNA Dec 27, 2016 17:44
--- NOTE | 2016-12-27 18:03 | NUR ---
Summary Pts VS stable on RA. present in room. Pt denying chest pain, soa, and nausea. Pt rated pain a 5/10, 2 tabs Corinna PRN were given. Other pain management options were discussed with the Pt at that time as well. Pt was assisted to the BR to void. Dermabond intact to lap sites, no drainage. Pt ate 100% of dinner and denied nausea.
--- NOTE | 2016-12-27 21:42 | OPNOTEF ---
DATE OF SERVICE 12/27/2016 SURGEON Michoacano Forrest MD CARGO INSPECTOR Sandip Kelley APRN PREOPERATIVE DIAGNOSIS Sphincter of Oddi dysfunction/biliary dyskinesia, history for right upper quadrant abdominal pain. POSTOPERATIVE DIAGNOSIS Sphincter of Oddi dysfunction/biliary dyskinesia, history for right upper quadrant abdominal pain. PROCEDURE Laparoscopic cholecystectomy with use of fluorescence biliary imaging. ANESTHESIA General endotracheal. EBL/FLUIDS Please see chart. BRIEF HISTORY/INDICATIONS Mr. Taamyo is a 36-year-old gentleman who has had a little over a month history of chest pain, right recurrent abdominal pain, nausea and vomiting. He has undergone a very thorough evaluation, both from a cardiac standpoint as well as from a GI standpoint. He has undergone multiple radiographic evaluations including gallbladder ultrasound, CT scan, hepatobiliary scan, gallbladder ultrasound. The patient, despite numerous tests and empiric interventions, continued to have ongoing right upper quadrant abdominal pain, nausea, vomiting, as well as a component chest discomfort. Patient had undergone a prior hepatobiliary scan and ejection fraction was found to be on the "low end of normal." The patient did have severe pain during his hepatobiliary scan that was identical to the pain that he had been previously experiencing. After reviewing this patient's chart and discussing with him and performing a physical examination it was my intuition that his pain may indeed be a result of sphincter of Oddi dysfunction/ biliary dyskinesia. I did discuss with him the option of proceeding with laparoscopic cholecystectomy as a result of the above indications. I also informed the patient that I could "not guarantee that his pain would completely resolve following surgical intervention/cholecystectomy." Patient understood and wished to proceed. For completeness please refer to notes included in the patient's chart. DESCRIPTION OF PROCEDURE After informed consent was obtained, the patient was taken to the operative suite and placed on the table in a supine position. The patient's abdomen was prepped and draped in the usual sterile fashion. Formal timeout was then completed. 0.25% Marcaine with epinephrine was injected just beneath the umbilicus. A 2-cm curved incision was made through the area of analgesia. Dissection was carried down to the deep subcuticular tissues to the underlying fascia. The fascia was grasped with two Shannon clamps and retracted anteriorly. A 1-cm incision was made between the two Shannon clamps. Hemostat was then introduced in the fascial incision and gently spread. U-stitch was then placed the fascial opening with 0-Vicryl. 12-mm Gino port was then placed in the peritoneal cavity and pneumoperitoneum was established to a patient pressure of 15 mmHg utilizing carbon dioxide. Next, three additional 5-mm ports were then placed in the epigastric region, right midabdomen and right lateral abdominal wall. Each port site was preinjected with 0.25% Marcaine and placed under visualization. Abdominal cavity was explored via the laparoscope. Liver edge was smooth without nodularities. Small bowel, omentum, colon, peritoneal surfaces which were visualized were within normal limits. Gallbladder itself was found to be fairly distended and did have a slight component of some gallbladder wall thickening. There were, however, no inflammatory changes present such as pericholecystic fluid. Next, the fundal portion of the gallbladder was grasped and retracted in cephalad fashion. Additional grasping Pean was then placed upon the infundibular portion of the gallbladder and retracted in a lateral and slightly caudad fashion to provide exposure to the triangle of Calot. Dissection was begun high upon the infundibulum of the gallbladder with the use of electrocautery. Dissection was continued until the only remaining structures coming forth from the infundibulum of the gallbladder were that of the cystic duct and cystic artery. Fluorescence biliary imaging was performed during the process of dissection to aid in identification of the cystic duct. Additionally, it should be noted that the posterior aspect at this juncture in time was also completely dissected away from the gallbladder fossa. Once the critical view of safety had been obtained a single hemoclip was then placed upon the cystic duct upon the midportion of the infundibulum of the gallbladder. Two additional hemoclips were then placed proximally. Additional hemoclip was then placed upon the cystic duct adjacent to the infundibular portion of the gallbladder. Two additional hemoclip were then just placed proximally upon the cystic duct. Cystic duct and cystic artery were then divided between the two distal clips. Gallbladder was dissected off the liver bed fossa and subsequently placed within a laparoscopic retrieval bag and removed via the infraumbilical port site. Irrigation was performed and all irrigant was suctioned till clear. Gallbladder fossa was inspected and found to be hemostatic in nature. The previously placed clips were visualized and remained to be intact. Ports were removed under direct visualization. Pneumoperitoneum was released. Previously placed U-stitch at the infraumbilical port was then secured, resulting in imbrication of the fascial edges. Skin incisions were closed in a subcuticular fashion with 4-0 Monocryl. Dermabond was applied. Patient tolerated the procedure without difficulty and will be sent back to the recovery room once deemed in stable condition. Lastly, it should be noted that my nurse practitioner, Sandip Kelley APRN, was present throughout the entire case and did play a pivotal role in providing assistance and exposure during the course of the procedure. SOLA
--- NOTE | 2016-12-28 00:35 | NUR ---
Chart Check 24 hour chart check completed
[2016-12-28 04:51] VITALS: BP 118/65; PULSE 61; RESP 12; TEMP 97.9; O2SAT 96
--- NOTE | 2016-12-28 04:57 | NUR ---
SHIFT SUMMARY PATIENT ALERT AND ORIENTED X3 THIS SHIFT. VITAL SIGNS STABLE ON ROOM AIR. PATIENT REPORTED PAIN AT 6/10 EARLY THIS SHIFT. NO PO MEDS WERE AVAILABLE AT THAT TIME, SO 0.5 DILAUDID WAS GIVEN. PO MEDS HAVE BEEN EFFECTIVE SINCE. HAS DENIED ANY N/V. PATIENT HAS BEEN FOUND RESTING AT ALL ROUNDS. WILL CONTINUE TO MONITOR.
[2016-12-28] MEDS: D5-1/2 NS KCL 20 MEQ 1,000 ML IV SCH (06:19)
[2016-12-28 08:58] VITALS: BP 113/96; PULSE 76; RESP 16; TEMP 96.8; O2SAT 95
[2016-12-28] MEDS ORDERED: IBUP-2067 PO (10:01)
[2016-12-28] MEDS ORDERED: HYDR-4246 PO (10:01)
[2016-12-28] MEDS: PANTOPRAZOLE 40mg INJECTION IV SCH (10:02)
[2016-12-28] MEDS: HYDROCODONE/APAP 5 mg/325 mg TABLET PO PRN (10:03)
[2016-12-28] MEDS: AMLODIPINE 5 MG TABLET PO SCH (10:04)
--- NOTE | 2016-12-28 10:18 | PNSURG ---
Subjective DATE: 12/28/16 TIME: 10:12 Interval History Patient is feeling "great compared to yesterday." He states that even in PACU he was already nearly pain free other than the incisions. He has eaten without nausea or emesis, walking the halls, voiding, and is very pleased that the pre- op symptoms are gone. We discussed post op activity and expectations. Work will not let him back till he is 100%, he does a lot of lifting and twisting, will fill out FMLA paperwork when it is delivered to the office. Objective Vital Signs Date Time Temp Pulse Resp B/P Pulse Ox O2 Delivery O2 Flow Rate FiO2 12/28/16 08:58 96.8 76 16 113/96 95 Room Air 12/27/16 15:35 6.00 Height (Feet): 6 Height (Inches): 3.00 Weight (Kilograms): 126.600 BMI 35.6 General Appearance: Alert, Obese, Orientated x 3 Respiratory: FOUND: clear all jaeger Cardiac: FOUND: regular rate, regular rhythm Abdominal Brief: FOUND: appropriately tender (at trocar sites), soft Incision: FOUND: Clean, Dry, Intact, open to air (Dermabond glue in tact), NOT FOUND: erythema Laboratory Laboratory Tests 12/26/16 17:03 Laboratory Tests 12/26/16 17:03 Procedure Procedure Date: Dec 27, 2016 Surgeon: Adriane Procedure Laparoscopic cholecystectomy with Firefly imaging GS Assessment & Plan Problems: (1) Biliary dyskinesia Status: Resolved (2) HTN (hypertension) Status: Chronic Qualifiers: Hypertension type: essential hypertension Qualified Codes: I10 - Essential (primary) hypertension (3) Reactive airway disease that is not asthma Status: Chronic Assessment POD #1, doing very well, denies nausea and the pre-op pain is gone, eating regular diet. Ross adequate for incisional pain. He would like to be discharged. Plan DC to home today. I called Dr. Sofia's office, his nurse talked to him and confirmed the ok to discharge. routine post op appointment 4-4 with Sandip at 10:00, sooner if concerns arise. DVT Prophylaxis: SCD'S Code Status Full Code, unverified Hospital Course Summary Disclaimer The visit summary below is not to be considered part of the above Progress Note. GABRIEL JARA APRN, CWS Dec 28, 2016 10:15
--- NOTE | 2016-12-28 11:30 | NUR ---
DISMISSAL PATIENT DISMISSED TO HOME FOR SELF-CARE TO THE MAIN HOSPITAL ENTRANCE. PATIENT AMBULATORY. 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 IV CATHETER D/C AND IV CATHETER TIP INTACT. D/C INSTRUCTIONS REVIEWED WITH PATIENT AND . BOTH VERBALIZED UNDERSTANDING. TOPICS DISCUSSED INCLUDED: NEW MEDICATIONS, S/S TO REPORT, FOLLOW UP APPOINTMENT, ACTIVITY RESTRICTIONS AND DIET. ARM BAND REMOVED AND PLACED IN SHRED. PERSONAL BELONGINGS RETURNED PRIOR TO D/C.
--- NOTE | 2016-12-28 18:56 | PNF ---
DATE 12/27/2016 SUBJECTIVE Patient is lying in bed and feels more calm with less pain involving the right upper quadrant other than when I press on it. Nausea has improved. He needs to wait for Dr. Forrest to see him. PHYSICAL EXAM GENERAL: The patient looks more comfortable. VITAL SIGNS: BP fairly stable. NECK: Supple. CHEST: Lungs are clear. CARDIOVASCULAR: Regular rate and rhythm. ABDOMEN: Soft. Tender in the right upper quadrant. No surgical abdomen at this time. Bowel sounds are normoactive. EXTREMITIES: No cyanosis, clubbing or edema. ASSESSMENT Acute right upper quadrant pain suspicious for gallbladder disease in light of negative CT abdomen, negative ultrasound x 2 and negative HIDA scan with ejection fraction of 42%. PLAN Await Dr. Forrest. I suspect patient will be taken to surgery today. Continue current medications, IV fluids as well as IV pain medication. MTDD
--- OUTSIDE RECORDS SUMMARY | 2016-12-31 15:57 | XMS REPORT | Continuity of Care Document ---
Author Author [facility] Organization [facility] Address Unknown Phone Unavailable Support Name Relationship Address Phone CHARIS BOOKER MD Caregiver [address] [place] [address] Unavailable CHARIS BOOKER MD Caregiver [address] [place] [address] Unavailable CHARIS BOOKER MD Caregiver [address] [place] [address] Unavailable ASPEN TAMAYO Next Of Kin [address], [place] [id number] Insurance Providers Guarantor Dilshad Tamayo Address [address] [place] [address] CP Email [email or web address] Select Policy Number [id number] Subscriber's Name RoniAshleen Relationship 18 Self Advance Directives Directive Response Recorded Date/Time Dr Ordered Resuscitation Status Full Code, unverified 12/26/16 4:17pm Resuscitation Documents on File No 12/26/16 4:14pm DPOA for Healthcare Only No 12/26/16 6:40pm Living Will No 12/26/16 4:14pm Advance Directive Consult Information Given 12/27/16 12:01pm Problems Active Problems Medical Problem Onset Date Status Biliary dyskinesia Unknown Resolved Closed head injury Unknown HTN (hypertension) Unknown Chronic History of posttraumatic stress disorder (PTSD) Unknown Left knee injury Unknown Precordial chest pain Unknown Acute Reactive airway disease that is not asthma Unknown Chronic Traumatic injury of the kidney Unknown Medications Current Home Medications Medication Dose Units Route Directions Days Qty Instructions Start Date Amlodipine Besylate 5 Mg Tablet 5 Mg Oral Daily 30 Tablet 12/01/16 Cetirizine Hcl (Zyrtec) 10 Mg Capsule 1 Cap Oral Daily 12/21/16 Hydrocodone/Acetaminophen (Orient 5-325 Tablet) 5-325 Tablet 1-2 Tab Oral Every 5 Hours as needed for Pain 30 Tablet 12/28/16 Ibuprofen 600 Mg Tablet 600 Mg Oral Every 6 Hours as needed for Pain 10 Days 40 Tablet 12/28/16 Lansoprazole 30 Mg Capsule.dr 1 Cap Oral Bedtime 12/26/16 Lorazepam (Ativan) 0.5 Mg Tablet 0.5 Mg Oral Three Times A Day 10 Days 30 Tablet 12/05/16 Ondansetron Hcl (Zofran) 4 Mg Tablet 4 Mg Oral Three Times A Day 12/26/16 Past Home Medications Medication Directions Ordered Status [...] Sublingual As Needed Discontinued Omeprazole 20 Mg Tablet., 20 Mg Oral Before Breakfast 12/24/16 Discontinued Omeprazole Magnesium (Prilosec Otc) 20 Mg Tablet.dr, 1 Tab Oral Bedtime for Acid Reflux 12/01/16 Discontinued Oxycodone Hcl/Acetaminophen (Percocet 5-325 Mg Tablet) 1 Each Tablet, 5 Mg Oral Every 3 Hours as needed for Pain 12/02/15 Discontinued Prazosin Hcl 2 Mg Capsule, 1 Cap Oral Bedtime 07/14/15 Discontinued Social History Social History Problem Response Recorded Date/Time Onset Date Status Reason for Hospitalization CHOLECYSTECTOMY 12/28/2016 10:43am Not Applicable Not Applicable Hx Substance Use No 12/24/2016 6:15am Not Applicable Not Applicable Hx Alcohol Use Y SOCIAL PER H&P 12/24/2016 6:15am Not Applicable Not Applicable Has the pt used tobacco in the last 12 months No 12/26/2016 4:16pm Not Applicable Not Applicable Query Response Start Date Stop Date Smoking Status Former smoker Hospital Discharge Instructions Instructions: Care Instructions: I was in the hospital because (patient own words): ABDOMINAL PAIN, NAUSESA, VOMITING SINCE SATURDAY MORNING Discharge Diet: regular Discharge Activity: Do not drive, operate machinery for 24 hours after surgery or while taking pain medication. No lifting more than 25 pounds for 4 weeks. Follow Up Appointments: Follow up with Sandip Kelley APRN/ Dr. Kramer ion January 15 at 10:00 am Pending Lab / Results: Will review at f/u apt Patient Instructions: May Shower Expected Signs/Symptoms: gradual decrease in discomfort of trocar/incision area. Occasionally one may have looser stools for a couple of weeks after gallbladder surgery. Notify Physician If: 1. Call your surgeon if you are having problems relating to your surgery at [phone]. 2. Problems such as: Temp above 101.5 degrees You develop redness, excessive swelling of the incision, increasing pain or excessive foul smelling drainage. 3. If the office is closed, call [facility] at [phone] and have your Surgeon paged. During Business Hours:: Call Dr. 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 Pain Management/Treatment: As directed. Pain Scale Utilized to Educate Patient: 0-10 Pain Scale Wound/Incision Care: Leave incision open to air. Do not pick or rub off the glue. Condition at time of discharge: Good Plan of Care Discharge Date 12/28/16 11:30am Disposition 01 DISCHARGED HOME, SELF-CARE Instructions/Education Provided Laparoscopic Cholecystectomy (DC) Acute Nausea and Vomiting (DC) Prescriptions See Medication Section Care Plan and Goals See Discharge Instructions Section Functional Status Query Response Date Recorded Mobility Status Ambulatory December 26, 2016 4:13pm Assistive Devices None December 26, 2016 4:13pm Activity Limitations Weakness Fatigue Shortness of breath Dizziness Pain Cough December 26, 2016 4:13pm Feeding Ability Independent December 26, 2016 4:13pm Toileting Ability Independent December 26, 2016 4:13pm Grooming Ability Independent December 26, 2016 4:13pm Dressing Ability Independent December 26, 2016 4:13pm Driving Ability Independent December 26, 2016 4:13pm Housework Ability Independent December 26, 2016 4:13pm Meal Preparation Ability Independent December 26, 2016 4:13pm Stair Climbing Ability Independent December 26, 2016 4:13pm Ability to complete ADL's impeded by No change December 26, 2016 4:14pm Cognitive/Perceptual Impairments Impaired vision December 26, 2016 4:13pm Visual Assistive Devices Glasses December 26, 2016 4:13pm Allergies, Adverse Reactions, Alerts Allergen Type Severity Reaction Status Last Updated Johnston Allergy Unknown Active 12/26/16 Immunizations Query Response on File Recorded Date/Time Hx Influenza Vaccination Y AUG 2016 12/26/16 4:16pm Hx Pneumococcal Vaccination No 12/26/16 4:16pm Hx Influenza Vaccination Y AUG 2016 12/26/16 4:16pm Influenza Vaccine Hx August 2016 12/27/16 11:33am Vital Signs Acute Vital Signs Vital Response Date/Time Temperature (Fahrenheit) 96.8 deg F (96.8 - 99.1) 12/28/2016 8:58am Temperature (Calculated Celsius) 36.44854 degrees C (36.0 - 37.3) 12/28/2016 8:58am Temperature Source Oral 12/27/2016 8:19pm Pulse Rate (adult) 76 bpm (60 - 100) 12/28/2016 8:58am Respiratory Rate 16 breaths/min (10 - 20) 12/28/2016 8:58am O2 Sat by Pulse Oximetry 95 % (90 - 100) 12/28/2016 8:58am Oxygen Delivery Method Room Air 12/27/2016 8:19pm Oxygen Delivery Method Room Air 12/28/2016 8:58am Oxygen Flow Rate 6.00 L/min 12/27/2016 3:35pm Blood Pressure 113/96 mm Hg 12/28/2016 8:58am Blood Pressure Source Automatic Cuff 12/28/2016 8:58am Height (Feet) 6 feet 12/28/2016 10:18am Height (Inches) 3.00 inches 12/28/2016 10:18am Weight (Kilograms) 126.600 kg 12/27/2016 8:02am Body Mass Index (BMI) 35.6 12/26/2016 4:14pm Results Laboratory Results Test Name Result Units [...] Basophils % (Manual) 2.0 % 0-2 11/30/2016 1:25pm 11/30/2016 2:18pm Absolute Neutrophils (Manual) 3.9 T/MM3 1.8-7.7 11/30/2016 1:25pm 11/30 2:18pm Lymphocytes # (Manual) 2.7 T/MM3 1-4.8 11/30/2016 1:25pm 11/30/2016 2: 18pm Monocytes # (Manual) 0.4 T/MM3 0-0.8 11/30/2016 1:25pm 11/30/2016 2: 18pm Eosinophils # (Manual) 0.1 T/MM3 0-0.5 11/30/2016 1:25pm 11/30/2016 2: 18pm Basophils # (Manual) 0.1 T/MM3 0-0.2 11/30/2016 1:25pm 11/30/2016 2: 18pm Red Cell Morphology Comment NORMAL 11/30/2016 1:25pm 11/30/2016 2: 18pm Magnesium Level 2.0 MG/DL 1.6-2.3 11/30/2016 1:pm 11/30/2016 1:44pm Thyroid Stimulating Hormone (TSH) 2.60 MIU/L 0.47-4.68 11/30/2016 1: 25pm 11/30/2016 3:38pm Creatine Kinase MB 0.6 ng/mL 0.0-7.2 11/30/2016 1:25pm 11/30/2016 10: 08pm CKMB Mass performed at [facility] Reference Lab, [address] [place] [address] Fur Dressing Supervisor Yanna Robert DO D-Dimer < 150 NG/ML 0-230 12/04/2016 11:27am 12/04/2016 12:00pm <230 NG/ML D-DU=PRESUMPTIVE NEGATIVE FOR PE OR DVT >230 NG/ML D-DU=ADDITIONAL EVAL FOR PE OR DVT RECOMMENDED Troponin I < 0.012 ng/ml 0-0.12 12/05/2016 4:09am 12/05/2016 5:36am Troponin values with a difference of 55% increase from orginal troponin value represent a true biological DELTA value. (%increase Calc=Orginal Troponin value, divided by subsequent Troponin value, multiplied by 100) White Blood Count 7.4 T/MM3 4.5-11.0 12/26/2016 5:03pm 12/26/2016 5: 30pm Red Blood Count 4.96 M/MM3 4.50-5.90 12/26/2016 5:03pm 12/26/2016 5: 30pm Hemoglobin 14.2 GM/DL 13.5-17.5 12/26/2016 5:03pm 12/26/2016 5:30pm Hematocrit 39.4 % L 41-53 12/26/2016 5:03pm 12/26/2016 5:30pm Mean Corpuscular Volume 79.4 UM3 L 80-100 12/26/2016 5:03pm 12/26/2016 5 :30pm Mean Corpuscular Hemoglobin 28.6 UUG 26-34 12/26/2016 5:03pm 2016 5:30pm Mean Corpuscular Hemoglobin Concent 36.0 GM/DL 31-37 12/26/2016 5:03pm 12/26/2016 5:30pm RDW Standard Deviation 35.7 FL L 36.9-50.2 12/26/2016 5:03pm 12/26/2016 5:30pm Platelet Count 283 T/MM3 130-400 12/26/2016 5:03pm 12/26/2016 5:30pm Mean Platelet Volume 8.3 UM3 L 9.4-12.4 12/26/2016 5:03pm 12/26/2016 5: 30pm Neutrophils (%) (Auto) 58.4 % 33-66 12/26/2016 5:03pm 12/26/2016 5: 30pm Lymphocytes (%) (Auto) 34.5 % 23-45 12/26/2016 5:pm 12/26/2016 5: 30pm Monocytes (%) (Auto) 5.0 % 0-9.0 12/26/2016 5:03pm 12/26/2016 5:30pm Eosinophils (%) (Auto) 1.5 % 0-4 12/26/2016 5:pm 12/26/2016 5:30pm Basophils (%) (Auto) 0.5 % 0-2 12/26/2016 5:12/26/2016 5:30pm Immature Granulocyte % (Auto) 0.1 % 0.0-0.5 12/26/2016 5:03pm 2016 5:30pm Absolute Neutrophils (auto) 4.3 T/MM3 1.8-7.7 12/26/2016 5:03pm 2016 5:30pm Absolute Lymphocytes (auto) 2.5 T/MM3 1-4.8 12/26/2016 5:03pm 2016 5:30pm Absolute Monocytes (auto) 0.4 T/MM3 0-0.8 12/26/2016 5:03pm 12/26/2016 5:30pm Absolute Eosinophils (auto) 0.1 T/MM3 0-0.5 12/26/2016 5:03pm 2016 5:30pm Absolute Basophils (auto) 0.0 T/MM3 0-0.2 12/26/2016 5:03pm 12/26/2016 5:30pm Absolute Immature Granulocyte (auto 0.01 T/MM3 0.00-0.03 12/26/2016 5: 03pm 12/26/2016 5:30pm Icterus Index < 2 0-7 12/26/2016 5:03pm 12/26/2016 6:05pm Chemistry Specimen Hemolysis < 15 0-25 12/26/2016 5:03pm 12/26/2016 6 :05pm 0-25: Specimen Exhibited No Hemolysis. Turbidity < 20 0-20 12/26/2016 5:03pm 12/26/2016 6:05pm Sodium Level 141 MEQ/L 134-144 12/26/2016 5:03pm 12/26/2016 6:05pm Potassium Level 3.7 MEQ/L 3.6-5 12/26/2016 5:03pm 12/26/2016 6:05pm Chloride Level 104 MEQ/L 98-107 12/26/2016 5:03pm 12/26/2016 6:05pm Carbon Dioxide Level 28 MEQ/L 22-30 12/26/2016 5:03pm 12/26/2016 6: 05pm Anion Gap 9 MEQ/L 5-15 12/26/2016 5:03pm 12/26/2016 6:05pm Blood Urea Nitrogen 14.0 MG/DL 9-20 12/26/2016 5:03pm 12/26/2016 6: 05pm Creatinine 1.0 MG/DL 0.8-1.5 12/26/2016 5:03pm 12/26/2016 6:05pm BUN/Creatinine Ratio 14 RATIO 6-26 12/26/2016 5:03pm 12/26/2016 6:05pm Glomerular Filtration Rate Calc 84 12/26/2016 5:03pm 12/26/2016 6: 05pm Glucose Level 105 MG/DL 75-110 12/26/2016 5:03pm 12/26/2016 6:05pm Calculated Osmolality 272 MOSM/KG 261-280 12/26/2016 5:03pm 12/26/2016 6:05pm Calcium Level 9.2 MG/DL 8.4-10.2 12/26/2016 5:03pm 12/26/2016 6:05pm Total Bilirubin 0.80 MG/DL 0.20-1.30 12/26/2016 5:03pm 12/26/2016 6: 05pm Alkaline Phosphatase 59 U/L 38-126 12/26/2016 5:03pm 12/26/2016 6:05pm Total Protein 7.1 G/DL 6.3-8.2 12/26/2016 5:03pm 12/26/2016 6:05pm Albumin 4.1 G/DL 3.5-5.0 12/26/2016 5:03pm 12/26/2016 6:05pm Globulin 3.0 G/DL 2.4-3.6 12/26/2016 5:03pm 12/26/2016 6:05pm Albumin/Globulin Ratio 1.4 RATIO 1.1-2.2 12/26/2016 5:03pm 12/26/2016 6 :05pm Aspartate Amino Transf (AST/SGOT) 24 U/L 17-59 12/26/2016 5:03pm 2016 6:05pm Alanine Aminotransferase (ALT/SGPT) 49 U/L 21-72 12/26/2016 5:03pm 6:05pm Lipase 39 U/L 23-300 12/26/2016 5:03pm 12/26/2016 7:55pm Urine Collection Type CLEANCATCH-MIDSTREAM 12/26/2016 6:30pm 2016 6:40pm Urine Color YELLOW YELLOW 12/26/2016 6:30pm 12/26/2016 6:40pm Urine Turbidity CLEAR CLEAR 12/26/2016 6:30pm 12/26/2016 6:40pm Urine Specific [place] 1.010 L 1.015-1.025 12/26/2016 6:30pm 2016 6:40pm Urine pH 7.0 5.0-8.0 12/26/2016 6:30pm 12/26/2016 6:40pm Urine Leukocyte Esterase NEGATIVE NEGATIVE 12/26/2016 6:30pm 2016 6:40pm Urine Nitrite NEGATIVE NEGATIVE 12/26/2016 6:30pm 12/26/2016 6:40pm Urine Protein NEGATIVE NEGATIVE 12/26/2016 6:30pm 12/26/2016 6:40pm Urine Glucose (UA) NEGATIVE NEGATIVE 12/26/2016 6:30pm 12/26/2016 6: 40pm Urine Ketones NEGATIVE NEGATIVE 12/26/2016 6:30pm 12/26/2016 6:40pm Urine Urobilinogen 0.2 EU/DL NORMAL 12/26/2016 6:30pm 12/26/2016 6: 40pm Urine Bilirubin NEGATIVE NEGATIVE 12/26/2016 6:30pm 12/26/2016 6: 40pm Urine Blood NEGATIVE NEGATIVE 12/26/2016 6:30pm 12/26/2016 6:40pm Urinalysis Comment MICROSCOPIC NOT IND. 12/26/2016 6:30pm 2016 6:40pm Serum Amylase 35 U/L 25-125 12/26/2016 5:03pm 12/27/2016 2:44pm Amylase performed at [facility] Reference Lab, [address] [place] [id number] Fur Dressing Supervisor Yanna Robert DO Name: DILSHAD TAMAYO Unit #: [id number] : 1980 Sex: M Admit Date: 12/26/16 Loc / Svc: SRG Discharge Date: DIAGNOSTIC IMAGING REPORT Report #: [id number] [place], [place] Indication: ITS.REASON: INTRACTABLE N/V RUQ PAIN US GALLBLADDER: Comparison: 12/04/2016 Technique: Real-time and color flow imaging provided Findings: Liver: Shows mildly increased echogenicity suggesting diffuse fatty infiltration. No focal masses are noted. Liver measured 14.5 cm. Pancreas showed no acute findings. Aorta and vena cava were unremarkable. Gallbladder shows no stones, wall thickening or tenderness to transducer palpation. Right kidney measures 11.6 x 5.5 x 5.4 cm showing a 4.7 x 6.2 x 4.7 cm cyst. No obstructive uropathy identified. Impression: 1. Moderate sized cyst in the right kidney without additional acute findings 2. Probable diffuse fatty infiltration the liver without marked biliary ductal dilatation or masses. . Procedures Procedure Status Date Provider(s) Routine venipuncture [...] Completed 11/30/16 Ther/proph/diag inj sc/im Completed 11/30/16 446080"HOSPITAL OBSERVATION SERVICE, PER HOUR" Completed 11/30/16 259538"HOSPITAL OBSERVATION SERVICE, PER HOUR" Completed 11/30/16 579190"HOSPITAL OBSERVATION SERVICE, PER HOUR" Completed 11/30/16 957534"HOSPITAL OBSERVATION SERVICE, PER HOUR" Completed 11/30/16 724429"INJECTION, ENOXAPARIN SODIUM, 10 MG" Completed 11/30/16 276273"INJECTION, ENOXAPARIN SODIUM, 10 MG" Completed 11/30/16 Routine [...] Completed "INJECTION, SINCALIDE, 5 MICROGRAMS" Completed 12/07/16 Egd biopsy single/multiple Completed 12/24/[address] abd & pelv w/contrast Completed 12/24/16 Culture screen only Completed 12/24/16 PROPOFOL INJ 500 MG/50ML Completed 12/24/16 PROPOFOL INJ 500 MG/50ML Completed 12/24/16"INFUSION, NORMAL SALINE SOLUTION , 250 CC" Completed 12/24/16"RINGERS LACTATE INFUSION, UP TO 1000 CC" Completed 12/24/16"LOW OSMOLAR CONTRAST MATERIAL, 300-399 MG/ML IODINE C Completed Laparoscopic cholecystectomy Completed 12/27/16 DANNY KRAMER MD, FACS, CWS Encounters Encounter Location Arrival/Admit Date Discharge/Depart Date Attending Provider Discharged Inpatient (obs) [facility] 12/26/16 3:53pm 12/28/16 11 :30am CHARIS BOOKER MD Departed Surgical Day Care [facility] 12/24/16 5:51am 12/24/16 10 :40am ERASMO SALVADOR MD Registered Clinic [facility] 12/07/16 8:04am CHARIS BOOKER MD Departed Surgical Day Care [facility] 12/04/16 10:27am 12/05/16 6 :40pm CHARIS BOOKER MD Discharged Inpatient (obs) [facility] 11/30/16 12:20pm 12/01/16 10:55am CHARIS BOOKER MD
--- OUTSIDE RECORDS SUMMARY | 2016-12-31 15:58 | XMS REPORT ---
Author Author [facility] Organization [facility] Address [address] [place] [address] Phone [phone] Summary purpose CCDA Sent to [place] Chief Complaint and Reason for Visit Admit Diagnosis 1 CHEST PAIN Problem list Condition Status Certainty Chronicity Onset .Chest pain Resolved Encounters The following conditions tracked for encounter diagnoses were recorded for this visit: Finding or Diagnosis Status Certainty Chronicity Onset .Chest pain Resolved Medications No medications recorded for this patient visit Allergies, adverse reactions, alerts Allergen Category Ingredient Status Reaction Severity Onset peach Drug peach Active Swelling Moderate Adolescence Immunizations No immunizations recorded for this patient visit Relevant diagnostic tests and/or laboratory data RESULTS [id number]:55:39 Discharge Summary pt d/c home on ibuprofen CBC 72-26-082108:30:00 Result Normal Range Units WBC 6.91 5.8-10.8 x103/mm3 Neutrophil % L 44.0 50-70 % Lymph % 46.2 20-50 % [place] % 6.9 1.0-9.0 % Eosinophil % 2.3 0-4 % Basophil % 0.6 0-2 % Neutrophil # 3.04 3.0-7.0 x103/mm3 Lymph # 3.19 1.0-4.0 x103/mm3 [place] # 0.48 0.0-0.8 x103/mm3 Eosinophil # 0.16 0-0.5 x103/mm3 Basophil # 0.04 0-0.2 x103/mm3 RBC 5.36 4.60-6.20 x103/mm3 HGB 15.0 14.0-18.0 g/dl HCT 42.2 42.0-52.0 % MCV L 78.7 80-94 FL MCH 28.0 27.0-31.0 pg MCHC 35.5 32.0-36.0 g/dl RDW 12.7 12-15 % Platelet 287 150-400 x103/mm3 MPV 8.3 6.0-10.0 FL Chemistry Group [id number]:30:00 Result Normal Range Units Sodium 141 134-145 mmol/L Potassium 3.7 3.6-5.0 mmol/L Chloride 105 98-107 mmol/L CO2 27 22-30 mmol/L Glucose 83 75-110 mg/dl BUN 11 9-20 mg/dl Creatinine .86 0.8-1.7 mg/dl eGFR 100 ml/min. Total Protein 7.4 6.3-8.2 g/dl Albumin 4.2 3.5-5.0 g/dl Calcium 9.2 8.4-10.2 mg/dl Alk Phos 65 38-126 U/L AST 25 14-36 U/L ALT 43 11-66 U/L T Bili .6 0.2-1.3 mg/dl A/G Ratio 1.3 Ratio Coagulation Group [id number]:00 Result Normal Range Units Protime 10.1 9.5-12.3 Sec INR 0.9 Special Chemistry Group [id number]:00 Result Normal Range Units Troponin I < 0.06 ng/ml NEGATIVE - 0.06-0.30 ng/ml INCONCLUSIVE - 0.31-0.64 ng/ml; Suggest Repeating in 2-4 hours POSITIVE - >0.64 ng/ml; Probable AMI 48-11-500795:30:00 Result Normal Range Units Troponin I < 0.06 ng/ml NEGATIVE - 0.06-0.30 ng/ml INCONCLUSIVE - 0.31-0.64 ng/ml; Suggest Repeating in 2-4 hours POSITIVE - >0.64 ng/ml; Probable AMI History of procedures Procedure Code Code Type Description Date Performed Performing Physician [id number] CPT-4 HOSPITAL OBSERVATION PER HR 11-28-2016 CAMERON OCAMPO 50737 CPT-4 ELECTROCARDIOGRAM, TRACING 11-28-2016 CAMERON OCAMPO 57698 CPT-4 COMPLETE CBC, AUTOMATED 11-28-2016 CAMERON OCAMPO 29718 CPT-4 PROTHROMBIN TIME 11-28-2016 CAMERON OCAMPO 73821 CPT-4 ASSAY OF TROPONIN, QUANT 11-28-2016 CAMERON OCAMPO 41974 CPT-4 COMPREHEN METABOLIC PANEL 11-28-2016 CAMERON OCAMPO 41036 CPT-4 CHEST X-RAY 11-28-2016 CAMERON OCAMPO 11447 CPT-4 ELECTROCARDIOGRAM, TRACING 11-28-2016 CAMERON OCAMPO 72636 CPT-4 ASSAY OF TROPONIN, QUANT 11-28-2016 CAMERON OCAMPO 37495 CPT-4 ELECTROCARDIOGRAM, TRACING 11-28-2016 CAMERON OCAMPO J1885 CPT-4 KETOROLAC TROMETHAMINE INJ 11-28-2016 CAMERON OCAMPO 15437 CPT-4 EMERGENCY DEPT VISIT 11-28-2016 CAMERON OCAMPO 31485 CPT-4 THER/PROPH/DIAG INJ, IV PUSH 11-28-2016 CAMERON OCAMPO Functional status Functional Status Finding Observation Time Dexterity Right-handed 92-24-288050:32 Weight Bearing Statu Full 27-67-949618:55 Transferring/Ambulat Independent 44-44-032463:32 Bathing Independent 43-00-468027:32 Dressing Independent 66-73-354099:32 Eating Independent 98-17-189818:32 Drinking Independent :32 Toileting Independent :32 Able to Turn Self in Independent 74-85-065653:32 Cognitive Status Finding Observation Time Level of Consciousne Alert 86-36-816658:35 Oriented to Person Yes 70-07-466360:[address] Yes 59-37-012375:35 Oriented to Time Yes :35 Dizziness With Activity 93-27-566954:35 Vital signs Type Value Date Respirations 18 83-97-927030:04 Pulse 76 :04 O2 Saturation 96% 01-48-600525:04 Systolic Blood Press 116mm/HG 87-13-089946:04 Diastolic Blood Pres 75mm/HG 58-55-288473:04 Temperature (Fahr) 98.6Degrees 06-84-907325:04 Height 75in 86-82-315762:22 Weight 285.6LB 76-99-918474:22 Social history Type Value Smoking Status NEVER SMOKER Treatment Plan Treatment Plan at Di Follow up appointment on saturday Hospital discharge instructions No discharge instruction text is available for this visit.
--- OUTSIDE RECORDS SUMMARY | 2016-12-31 15:58 | XMS REPORT | Continuity of Care Document ---
Author Author [facility] Organization [facility] Address Unknown Phone Unavailable Allergies Active Description Code Type Severity Reaction Onset Reported/Identified Relationship to Patient Clinical Status Yes No Known Drug Allergy [id number] Drug Allergy N/A N/A Confirmed but inactive Yes peach 7909 Drug Allergy N/A N/A Confirmed or Verified Yes No Known Medication Allergies NKMA N/A N/A 04/11/2015 Yes peach 7909 Drug Allergy Moderate Swelling 11/28/2016 Medications Problems Date Dx Coded Attending Type Code Diagnosis Diagnosed By 05/15/2013 LANDON MENDEZ 793.19 NONSP FINDING-LF NEC 11/28/2016 D R07.81 Pleurodynia 11/28/2016 A R07.9 Chest pain, unspecified Procedures Code Description [place] [address] COMPLETE CBC, AUTOMATED LANDON MENDEZ 05/15/2013 20837 CHEST X-RAY CAMERON OCAMPO MD 11/28/2016 30738 COMPREHEN METABOLIC PANEL CAMERON OCAMPO MD 11/28/2016 57156 ASSAY OF TROPONIN, QUANT CAMERON OCAMPO MD 11/28/2016 44231 COMPLETE CBC, AUTOMATED CAMERON OCAMPO MD 11/28/2016 23813 PROTHROMBIN TIME CAMERON OCAMPO MD 11/28/2016 65170 ELECTROCARDIOGRAM, TRACING CAMERON OCAMPO MD 11/28/2016 43306 THER/PROPH/DIAG INJ, IV PUSH CAMERON OCAMPO MD 11/28/2016 92548 EMERGENCY DEPT VISIT CAMERON OCAMPO MD 11/28/2016 G0378 HOSPITAL OBSERVATION PER HR CAMERON OCAMPO MD 11/28/2016 J1885 KETOROLAC TROMETHAMINE INJ CAMERON OCAMPO MD 11/28/2016 Results Test Result Range CBC - 05/15/13 10:25 Granulocyte # 3.2 x10^3 3.0-7.0 Granulocyte % 49.0 % 50-70 HCT 45.4 % 42.0-52.0 HGB 15.2 G/DL 14.0-18.0 Lymph # 3.0 x10^3 1.0-4.0 Lymph % 46.0 % 20-50 MCH 28.9 PG 27.0-31.0 MCHC 33.5 G/DL 32.0-36.0 MCV 86 FL 80-94 [place] # 0.3 x10^3 0.0-0.8 [place] % 5.0 % 1.0-9.0 MPV 6.0 FL 6.0-10.0 Platelet 286 x10^3 150-400 RBC 5.26 x10^3 4.60-6.20 RDW 12.7 % 10.0-13.0 WBC 6.5 x10^3 5.8-10.8 Encounters ACCT No. Visit Date/Time Discharge Status Pt. Type Provider Facility Loc./Unit Complaint [id number] 05/15/2013 13:00:00 05/15/2013 13:00:00 DIS Outpatient MELINA BRUCE, [facility] [id number] 11/28/2016 12:05:00 Document Registration
--- OUTSIDE RECORDS SUMMARY | 2016-12-31 15:58 | XMS REPORT | Continuity of Care Document ---
Author Author [facility] Organization [facility] Address Unknown Phone Unavailable Support Name Relationship Address Phone CHARIS BOOKER MD Caregiver [address] [place] [address] Unavailable CHARIS BOOKER MD Caregiver [address] [place] [address] Unavailable CHARIS BOOKER MD Caregiver [address] [place] [address] Unavailable ASPEN TAMAYO Next Of Kin [address] [place], [place] [id number] Insurance Providers Guarantor Dilshad Tamayo Address [address] [place] [address] CP Email [facility] Select Policy Number [id number] Subscriber's Name RoniAshleen Relationship 16 Self Advance [...] Capsule 1 Cap Oral Daily 12/21/16 Hydrocodone/Acetaminophen ([place] 5-325 Tablet) 5-325 Tablet 1-2 Tab Oral [...] having problems relating to your surgery at [phone]. 2. Problems such as: Temp above 101.5 degrees You develop redness, excessive swelling of the incision, increasing pain or excessive foul smelling drainage. 3. If the office is closed, call [facility] at [phone] and have your Surgeon paged. During Business Hours:: Call Dr. 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 Pain Management/Treatment: As directed. Pain Scale Utilized to Educate Patient: 0-10 Pain Scale Wound/Incision Care: Leave incision open to air. Do not pick or rub off the glue. Condition at time of discharge: Good Plan of Care Discharge Date 12/28/16 11:30am Instructions/Education Provided Laparoscopic Cholecystectomy (DC) Acute Nausea and Vomiting (DC) Prescriptions See Medication Section Functional Status Query [...] Allergen Type Severity Reaction Status Last Updated Wasatch Allergy Unknown Active 12/26/16 Immunizations Query Response on File Recorded Date/Time Hx Influenza Vaccination Y AUG 2016 12/26/16 4:16pm Hx Pneumococcal Vaccination No 12/26/16 4:16pm Hx Influenza Vaccination Y AUG 2016 12/26/16 4:16pm Influenza Vaccine Hx August 2016 12/27/16 11:33am Vital Signs Acute Vital Signs Vital Response Date/Time Temperature (Fahrenheit) 96.8 deg F (96.8 - 99.1) 12/28/2016 8:58am Temperature (Calculated Celsius) 36.89113 degrees C (36.0 - 37.3) 12/28/2016 8:58am [...] 18pm Magnesium Level 2.0 MG/DL 1.6-2.3 11/30/2016 1:25pm 11/30/2016 1:44pm Thyroid Stimulating Hormone (TSH) 2.60 MIU/L 0.47-4.68 11/30/2016 1: pm 11/30/2016 3:38pm Creatine Kinase MB 0.6 ng/mL 0.0-7.2 11/30/2016 1:pm 11/30/2016 10: 08pm CKMB Mass performed at [facility], [address] [place] [address] Conduit Cleaner Yanna Robert DO D-Dimer < 150 NG/ML [...] Lymphocytes (%) (Auto) 34.5 % 23-45 12/26/2016 5:03pm 12/26/2016 5: 30pm Monocytes (%) (Auto) 5.0 % 0-9.0 12/26/2016 5:03pm 12/26/2016 5:30pm Eosinophils (%) (Auto) 1.5 % 0-4 12/26/2016 5:03pm 12/26/2016 5:30pm Basophils (%) (Auto) 0.5 % 0-2 12/26/2016 5:03pm 12/26/2016 5:30pm Immature Granulocyte % (Auto) 0.1 % [...] CLEAR 12/26/2016 6:30pm 12/26/2016 6:40pm Urine Specific [place] 1.010 L 1.015-1.025 12/26/2016 6:30pm 2016 6:40pm [...] 12/26/2016 5:03pm 12/27/2016 2:44pm Amylase performed at [facility], [address] [place] [address] Conduit Cleaner Yanna Robert DO Name: DILSHAD TAMAYO Unit #: [id number] : 1980 Sex: M Admit Date: 12/26/16 Loc / Svc: SRG Discharge Date: DIAGNOSTIC IMAGING REPORT Report #: [id number] [place], [place] Indication: ITS.REASON: INTRACTABLE N/V RUQ PAIN [...] Completed 11/30/16 Ther/proph/diag inj sc/im Completed 11/30/16 [id number]"HOSPITAL OBSERVATION SERVICE, PER HOUR" Completed 11/30/16 [id number]"HOSPITAL OBSERVATION SERVICE, PER HOUR" Completed 11/30/16 [id number]"HOSPITAL OBSERVATION SERVICE, PER HOUR" Completed 11/30/16 [id number]"HOSPITAL OBSERVATION SERVICE, PER HOUR" Completed 11/30/16 136802"INJECTION, ENOXAPARIN SODIUM, 10 MG" Completed 11/30/16 [id number]"INJECTION, ENOXAPARIN SODIUM, 10 MG" Completed 11/30/16 Routine [...] Date Discharge/Depart Date Attending Provider Departed Surgical [place] [facility] 12/26/16 3:53pm 12/28/16 11 :30am CHARIS BOOKER MD Departed Surgical Day Care [facility] 12/24/16 5:51am 12/24/16 10 :40am ERASMO SALVADOR MD Registered Clinic [facility] 12/07/16 8:04am CHARIS BOOKER MD Departed Surgical Day Care [facility] 12/04/16 10:27am 12/05/16 6 :40pm CHARIS BOOKER MD Discharged Inpatient (obs) [facility] 11/30/16 12:20pm 12/01/16 10:55am CHARIS BOOKER MD
--- NOTE | 2017-01-03 12:07 | DSF ---
FINAL DIAGNOSES 1. Acute cholelithiasis. 2. Right upper quadrant pain due to #1 above. 3. Chest pain, probably noncardiac. 4. Anxiety disorder. REASON FOR ADMISSION Patient is a 36-year-old male who presented to the office with a six-day history of nausea, vomiting and dry heaving. Could not even try solid food or drink for six days. He feels lightheaded, like he is going to fall. He was complaining of right upper quadrant pain that seemed to radiate to his back. He was having chest pain in his anterior chest and epigastric region that radiated to his neck and arms like it did when he presented with chest pain on 11/30/2016. Extensive cardiac workup had been done including CT of the abdomen and pelvis, CTA chest followed by ultrasound of the gallbladder with HIDA scan ejection fraction 45%. Also had a heart catheterization which was normal as far as cardiac etiology. He had an EGD done that showed mild gastritis as well as duodenitis. ADMISSION PHYSICAL EXAM GENERAL: Patient looked miserable, basically dry-heaving throughout the examination. He looked uncomfortable. ABDOMEN: Soft. Patient is tender at the right upper quadrant as well as epigastric region. Bowel sounds were normoactive. No guarding or rebound. HOSPITAL COURSE Patient was admitted to the surgical floor under the care of Dr. Rufus Sofia. Patient continued to have pain although given some pain management in the hospital. Dr. Forrest, general surgeon, was consulted. He evaluated the patient at that time. The patient gave an additional history of having more pain when dye was injected for the ejection fraction of the HIDA scan, became more painful at that time. The patient was subsequently taken to surgery by Dr. Forrest on 12/27/2016. According to Dr. Forrest's nurse practitioner, Sandip Kelley, the patient was much better the next day and he wanted to go home. I did get a chance to see this patient prior to dismissal. Sandip Kelley, VERIFICATION ENGINEER, evaluated the patient and thought the patient was medically stable to go to the care home. I gave a verbal okay for dismissal to home. DISCHARGE MEDICATIONS 1. [place] 5/325 mg one to two tablets q.5h. p.r.n. pain. 2. Ibuprofen 600 mg one tablet daily. 3. Amlodipine 5 mg one tablet daily. 4. Zyrtec 10 mg one capsule daily. 5. Lansoprazole 30 mg one tablet at bedtime. 6. Ativan 0.5 mg one tablet t.i.d. 7. Zofran 4 mg one tablet t.i.d. p.r.n. FOLLOWUP Follow up with Dr. Forrest on 12/28/2016. Follow up with me in three to four weeks. MTDD
== END 2016-12-28 11:30 | disposition home or self-care (01) ==
LOC: SCU 15:53 → UNDOADMOB 15:53 → SRG 15:53 → UNDODISOB 12-28 11:30 → SCU 12-28 11:30 → EDSTATUS 12-31 15:53
PROVIDERS: ATTEND Family Medicine
DX: K80.20 Calculus of gallbladder without cholecystitis without obstruction (principal); K82.8 Other specified diseases of gallbladder; R07.89 Other chest pain; F41.9 Anxiety disorder, unspecified; I10 Essential (primary) hypertension; F43.10 Post-traumatic stress disorder, unspecified; Z79.899 Other long term (current) drug therapy; G47.30 Sleep apnea, unspecified; E66.09 Other obesity due to excess calories; Z68.34 Body mass index [BMI] 34.0-34.9, adult; F32.9 Major depressive disorder, single episode, unspecified; Z87.891 Personal history of nicotine dependence; Z57.5 Occupational exposure to toxic agents in other industries; Z87.828 Personal history of other (healed) physical injury and trauma
CPT/HCPCS: 36415; 47562; 76705; 80053; 81003; 82150; 83690; 85025; 96361; 96374; 96375; 96376; C9113; G0378; J1170; J1885; J2405; J2704; J3010; Q9967; 99218